=== PATIENT | female | born 1985 | race Caucasian/White ===

== ENCOUNTER 2020-04-24 08:15 | Day surgery (SDC) | payer MEDICARE, MEDICAID ==
[2020-04-17 15:31] LABS: BASOPHILS % (AUTO) 0.9 % (0-1); EOSINOPHILS # (AUTO) 0.1 X10'3 (0-0.9); EOSINOPHILS % (AUTO) 1.5 % (0-6); LYMPHOCYTES # (AUTO) 1.6 X10'3 (1.1-4.8); LYMPHOCYTES % (AUTO) 30.8 % (21-51); MEAN CORPUSCULAR HEMOGLOBIN 28.6 PG (27.0-31.0); MEAN CORPUSCULAR HGB CONC 33.2 g/dL (33.0-36.5); MEAN CORPUSCULAR VOLUME 86.1 FL (78-98); MONOCYTES # (AUTO) 0.4 X10'3 (0-0.9); MONOCYTES % (AUTO) 7.1 % (2-12); NEUTROPHILS % (AUTO) 59.7 % (42-75); PRE OP HEMATOCRIT 39.8 % (35.0-45.0); PRE OP HEMOGLOBIN 13.2 g/dL (12.0-16.0); PRE OP PLATELET COUNT 312 X10'3 (140-440); RED BLOOD COUNT 4.62 X10'6 (4.20-5.60)
[2020-04-17 15:36] LABS: HCG SERUM QL NEGATIVE
[2020-04-17 15:40] LABS: ALBUMIN 3.8 G/DL (3.4-5.0); ALBUMIN/GLOBULIN RATIO 1.1 (1.1-1.5); ALKALINE PHOSPHATASE 31 IU/L (46-116); BLOOD UREA NITROGEN 13 MG/DL (7-18); CALCIUM 8.8 MG/DL (8.5-10.1); CHLORIDE 105 MMOL/L (99-107); CREATININE 0.65 MG/DL (0.40-0.90); PRE OP ALT 28 U/L (30-65); PRE OP ANION GAP 6 (8-16); PRE OP AST 20 U/L (10-37); PRE OP BILIRUB, TOTAL 0.3 MG/DL (0.0-1.0); PRE OP GLUCOSE 91 MG/DL (70-104); PRE OP SODIUM 140 MMOL/L (135-145); TOTAL CARBON DIOXIDE 28.8 MMOL/L (24-32); TOTAL PROTEIN 7.4 G/DL (6.4-8.2); eGFR > 90 ML/MIN
[~2020-04-24] VITALS: Ht 160 cm; Wt 68.0 kg
[2020-04-24] VITALS (22 sets, daily range): BP systolic 96–135; BP diastolic 60–94
[~2020-04-24 08:15] MED LIST: ACET-1008 PO; ATOM60CA PO; BACL10TA PO; COLLAGEN PO; GABA600T13 PO; GLUC100017 PO; HYDR-3964 PO; LACT1CAP65 PO; PNV1TABL87 PO; ceFOXitin 2GM-NS 100mL ADDvant 100 ML IV ONE; famotidine 20mg tablet PO ONE; ringers solution, lacted 1,000 ML IV SCH
[2020-04-24] MEDS ORDERED: morphine 2 MG/ML inj. syringe IV PRN (08:30)
[2020-04-24] MEDS ORDERED: proCHLORperazine 10 MG/2 ml inj IV PRN (08:30)
[2020-04-24] MEDS ORDERED: ondansetron/PF 4mg/2ml inj IV PRN ×2 (08:30→12:55)
[2020-04-24] MEDS ORDERED: ringers solution, lacted 1,000 ML IV SCH (08:30)
[2020-04-24] MEDS ORDERED: meperidine/PF 25mg/ml syringe IV PRN ×3 (08:30)
[2020-04-24] MEDS ORDERED: LIDOcaine 1% (10mg/ml) 2ml vial ONE (08:35)
[2020-04-24] MEDS ORDERED: BUPIVAcaine/PF 2.5 mg/ml (0.25%) 30ml vial ONE (09:15)
[2020-04-24] MEDS ORDERED: BUPIVAcaine 0.25% w/Epi /PF 30ml vial ONE (09:15)
[2020-04-24] MEDS ORDERED: clindamycin phosphate 40gm vag cream ONE (09:15)
[2020-04-24] MEDS ORDERED: vasoPRESSIN 20 units/ml inj. ONE (09:16)
[2020-04-24] MEDS ORDERED: neomy sulf/polymyxin B sulf. GU irrigation 1ml amp IR ONE (09:25)
[2020-04-24] MEDS ORDERED: ketorolac trometh. 30mg/ml inj. ONE ×2 (09:58→12:40)
[2020-04-24] MEDS ORDERED: sevoflurane 250ml liquid IH ONE (09:58)
[2020-04-24] MEDS ORDERED: midazolam 2 mg/2 ml injection ONE (10:05)
[2020-04-24] MEDS ORDERED: fentaNYL /PF 50mcg/ml 5ml ampule ONE (10:05)
[2020-04-24] MEDS ORDERED: LIDOcaine 2% (20mg/ml) 5ml vial ONE (10:08)
[2020-04-24] MEDS ORDERED: rocuronium 10mg/ml inj IV ONE (10:08)
[2020-04-24] MEDS ORDERED: propofol inj 20 ML IV ONE (10:08)
[2020-04-24] MEDS ORDERED: ondansetron/PF 4mg/2ml inj ONE (10:24)
[2020-04-24] MEDS ORDERED: dexamethasone sod phosphate 4mg/ml inj. ONE (10:24)
[2020-04-24] MEDS ORDERED: metoclopramide 5 mg/ml inj IV PRN (12:55)
[2020-04-24] MEDS ORDERED: diphenhydrAMINE 50 mg/ml inj IV PRN (12:55)
[2020-04-24] MEDS ORDERED: temazepam 15mg capsule PO PRN (12:55)
[2020-04-24] MEDS ORDERED: magnesium hydroxide 30ml (MOM) UD suspension PO PRN (12:55)
[2020-04-24] MEDS ORDERED: HYDROcodone/acetaminophen 10/325mg tab PO PRN ×2 (12:55)
[2020-04-24] MEDS: ringers solution, lacted 1,000 ML IV SCH ×2 (12:55→20:55)
[2020-04-24] MEDS ORDERED: normal saline 500ml IV soln 500 ML IV PRN (12:55)
[2020-04-24] MEDS ORDERED: HYDROcodone/acetaminophen 5mg/325mg tablet PO PRN (13:20)
[2020-04-24] MEDS ORDERED: acetaminophen 325mg tablet PO PRN (13:20)
[2020-04-24] MEDS: morphine 4 MG/ML inj SYRINge IV PRN ×3 (13:25→14:42)
[2020-04-24] MEDS: ketorolac trometh. 30mg/ml inj. IV PRN ×2 (13:25→19:31)
--- NOTE | 2020-04-24 14:59 | NUR ---
Patient in room . I have received report from recovery room nurse and had the opportunity to ask questions and assume patient care.
--- NOTE | 2020-04-24 15:17 | NUR ---
Report called to receiving nurse. Transferred via BED, CELL PHONE AND 1 BAG OF PERSONAL Belongings SENT W/PT TO ROOM 346B. RECEIVING RN AT BEDSIDE TO RECEIVE PT, BLL, CALL LIGHT GIVEN, SIDE RAILS UP X 2. Special Issues communicated to receiving nurse. YES. Addendum: 04/24/20 at 1531 by Rita Long RN Amended: Links added.
--- NOTE | 2020-04-24 15:33 | NUR ---
Pt transferred to surgical floor accompanied by JIN Salinas. Pt alert and oriented, pain well controlled. No s/s of bleeding noted. will monitor per protocol.
[2020-04-24] MEDS: LORazepam 2 mg/ml vial IV PRN ×2 (17:36→23:16)
[2020-04-24] MEDS ORDERED: oxyCODONE/APAP 10/325mg tablet PO PRN (17:45)
--- NOTE | 2020-04-24 18:37 | NUR ---
Problems reprioritized. Patient report given, questions answered & plan of care reviewed with JIN Jolly. Pt tolerating food well, ambulated 300 ft with minimal assistance.
[2020-04-24] MEDS: gabapentin 300mg capsule PO SCH (19:31)
[2020-04-24] MEDS: docusate sod 100mg capsule PO SCH (19:31)
[2020-04-24] MEDS: oxyCODONE/APAP 10/325mg tablet PO PRN (22:00)
[2020-04-25] VITALS: BP 113/70
[2020-04-25] MEDS: ketorolac trometh. 30mg/ml inj. IV PRN ×2 (02:32→08:18)
[2020-04-25] MEDS: LORazepam 2 mg/ml vial IV PRN ×3 (03:14→12:49)
[2020-04-25] MEDS: oxyCODONE/APAP 10/325mg tablet PO PRN ×2 (04:01→10:03)
[2020-04-25] MEDS: ringers solution, lacted 1,000 ML IV SCH (04:55)
--- NOTE | 2020-04-25 06:26 | NUR ---
Patient in room [facility] 346. I have received report from JIN Jolly and had the opportunity to ask questions and assume patient care.
[2020-04-25 08:00] VITALS: BP_SYST 66
[2020-04-25] MEDS ORDERED: enoxaparin 40mg/0.4ml syringe SQ SCH (08:00)
[2020-04-25] MEDS ORDERED: PNV NO.63/IRON,CARBONYL/FA/DHA 1 EACH CAPSULE PO SCH (08:00)
[2020-04-25] MEDS ORDERED: baclofen 10mg tablet PO SCH (08:00)
[2020-04-25] MEDS ORDERED: ATOMOXETINE HCL 60 MG PO SCH (08:00)
[2020-04-25] MEDS ORDERED: lactobacillus rhamnosus 10,000 MMU CELLS/CAPSULE PO SCH (08:00)
[2020-04-25] MEDS ORDERED: COLLAGEN PO SCH (08:00)
[2020-04-25] MEDS ORDERED: non-formulary drug (Glucosamine Sulfate 2Kcl (Glucosamine) 1 TAB) PO SCH (08:00)
[2020-04-25] MEDS: docusate sod 100mg capsule PO SCH (08:19)
[2020-04-25] MEDS: gabapentin 300mg capsule PO SCH (08:19)
[2020-04-25 13:00] VITALS: BP 111/58
--- NOTE | 2020-04-25 15:12 | NUR ---
Pt discharge home in stable condition by Dr Buenrostro. Pt voiding well, tolerating regular diet. Vaginal packing removed. Discharge instructions given to pt. Pt was escorted to main lobby on w/c. left the hospital via private vehicle accompanied by family member.
== END 2020-04-25 14:04 | disposition home or self-care (01) ==
LOC: PAS 08:15 → SUR 3N 12:52 → PAS 14:51
PROVIDERS: ATTEND Obstetrics & Gynecology Obstetrics
DX: N92.1 Excessive and frequent menstruation with irregular cycle (principal); N83.8 Other noninflammatory disorders of ovary, fallopian tube and broad ligament; N81.10 Cystocele, unspecified; Z20.822 Contact with and (suspected) exposure to COVID-19; Z79.899 Other long term (current) drug therapy; N99.4 Postprocedural pelvic peritoneal adhesions
CPT/HCPCS: 36415; 57240; 58552; 71046; 80053; 82948; 84703; 85025; 86885; 86900; 86901; 87081; 87635; 93005; J0694; J1100; J1885; J2001; J2060; J2175; J2250; J2270; J2405; J2704; J3010; J3490; J7120; 88307; A4314; A4618; A7000; G0378; J1650

== ENCOUNTER 2023-07-25 16:10 | Emergency (ER) | payer MEDICARE, MEDICAID ==
[~2023-07-25] VITALS: Ht 160 cm; Wt 75.7 kg
[~2023-07-25 16:10] MED LIST changes: -ceFOXitin 2GM-NS 100mL ADDvant 100 ML IV ONE; -famotidine 20mg tablet PO ONE; -ringers solution, lacted 1,000 ML IV SCH
[2023-07-25 16:36] VITALS: BP 136/89; PULSE 93; RESP 18; TEMP 97.8; O2SAT 98
== END 2023-07-25 17:42 | disposition home or self-care (01) ==
LOC: ER 16:10
DX: S60.212A Contusion of left wrist, initial encounter (principal); Z98.51 Tubal ligation status; W18.30XA Fall on same level, unspecified, initial encounter; Y93.89 Activity, other specified; Y92.89 Other specified places as the place of occurrence of the external cause; Y99.8 Other external cause status
CPT/HCPCS: 29125; 73110; 99284; A4565